=== PATIENT | female | born 1995 | race Caucasian/White ===

== ENCOUNTER 2016-05-02 17:14 | Emergency (ER) | payer OTHER ==
[2016-05-02] MEDS ORDERED: Ibuprofen 800 MG TAB ONE (17:32)
[2016-05-02 17:49] LABS: Bilirubin Negative (Negative); Blood, Urine Negative (Negative); Clarity Clear (Clear); Glucose, Urine (Dipstick) Negative (Negative); Leukocyte Negative (Negative); Nitrite Negative (Negative); Protein, Urine (Dipstick) Negative (Neg-Trace); Urobilinogen 0.2 mg/dL (0.2-1.0); pH, Urine 5.5 (5.0-9.0)
[2016-05-02 17:55] LABS: Pregu Control Bar Appear? YES (CONTROL BAR)
== END 2016-05-02 18:08 | disposition home or self-care (01) ==
LOC: BURERS 17:14
DX: M54.5 Low back pain (principal); J20.9 Acute bronchitis, unspecified; F17.210 Nicotine dependence, cigarettes, uncomplicated
CPT/HCPCS: 81003; 81025; 99283

== ENCOUNTER 2018-03-04 15:29 | Emergency (ER) | payer OTHER ==
[~2018-03-04 15:29] MED LIST: Iopamidol 370 76% 150 ML VIAL FS ONE
[2018-03-04 16:10] LABS: Clarity Clear (Clear); Leukocyte Negative (Negative); Nitrite Negative (Negative); Protein, Urine (Dipstick) Negative (Neg-Trace)
[2018-03-04 16:11] LABS: Bilirubin Negative (Negative); Blood, Urine Negative (Negative); Glucose, Urine (Dipstick) Negative (Negative); Urobilinogen 0.2 mg/dL (0.2-1.0)
[2018-03-04 16:29] LABS: Pregnancy Test - Urine (BHCG) Negative (Negative); Pregu Control Background? CLEAR/WHITE (CLR/WHITE); Pregu Control Bar Appear? YES (CONTROL BAR)
[2018-03-04 17:06] LABS: #Basophils 0.1 thou/uL (0.0-0.2); #Eosinphils 0.3 thou/uL (0.0-0.7); #Lymphocytes 4.3 thou/uL (1.20-3.40); #Monocytes 0.6 thou/uL (0.11-0.59); #Neutrophils 4.1 thou/uL (1.40-6.50); %Basophils 0.8 % (0.0-1.0); %Eosinophils 2.7 % (0.0-10.0); %Lymphocytes 45.9 % (21.0-51.0); %Monocytes 6.6 % (0.0-10.0); %Neutrophils 43.9 % (42.0-75.0); Hemoglobin 13.6 g/dL (12.0-16.0); Mean Corpuscular HGB CONC 34.2 g/dL (32.0-36.0); Mean Corpuscular Hemoglobin 31.5 pg (27.0-31.0); Mean Corpuscular Volume 92.1 fL (78.0-98.0); Mean Platelet Volume 7.7 fL (7.4-10.4); Platelet Count 219 thou/uL (130-400); RBC Distribution Width 11.5 % (11.5-14.5); Red Blood Cell (RBC) Count 4.32 mill/uL (4.20-5.40); White Blood Cell (WBC) Count 9.4 thou/uL (4.8-10.8)
[2018-03-04 17:23] LABS: ALT (SGPT) 12 U/L (8-55); AST (SGOT) 15 U/L (5-34); Albumin 3.9 g/dL (3.5-5.0); Alkaline Phosphatase 46 U/L (40-150); Anion Gap 12 mmol/L (10-20); BUN (Urea Nitrogen) 10 mg/dL (7.0-18.7); Bilirubin, Total 0.2 mg/dL (0.2-1.2); Calc. Creatinine Clearance 0 mL/min (70-130); Calcium 9.4 mg/dL (7.8-10.44); Carbon Dioxide 25 mmol/L (22-29); Chloride 105 mmol/L (98-107); Estimated GFR-MDRD 87; Globulin 2.4 g/dL (2.4-3.5); Glucose 92 mg/dL (70-105); Potassium 3.6 mmol/L (3.5-5.1); Protein, Total 6.3 g/dL (6.0-8.3); Sodium 138 mmol/L (136-145)
--- NOTE | 2018-03-04 18:05 | CT ---
CT ABDOMEN AND PELVIS WITH CONTRAST: 03/04/2018 HISTORY/TECHNIQUE: A spiral CT of the abdomen and pelvis is performed for evaluation of pain, particularly in the pelvic region. Axial slices were acquired and then coronal and sagittal reconstructions were done. FINDINGS: The lung bases are clear. The liver, spleen, pancreas, gallbladder, adrenal glands, kidneys, and abd ominal aorta all appear normal. The bowel shows no distention or wall thickening. There are some nondilated loops of fluid-filled sm all bowel, distally. The appendix is identified and appears normal. No free air or free fluid is se en. CT of the pelvis is remarkable for distention of the urinary bladder. The adnexal regions are unrema rkable with no evidence of abscess, cyst, or mass. There is no significant amount of free fluid in t he pelvis. No inflammatory changes are seen. IMPRESSION: Other than distention of the urinary bladder, the examination is unremarkable. POS: HOME
[2018-03-07 02:54] LABS: Chlamydia by PCR Not Detected (NotDetected); GC by PCR Not Detected (NotDetected)
== END 2018-03-04 18:21 | disposition home or self-care (01) ==
LOC: BURERS 15:29
DX: N73.9 Female pelvic inflammatory disease, unspecified (principal)
CPT/HCPCS: 74177; 80053; 81003; 81025; 85025; 87086; 87480; 87491; 87510; 87591; 87660